=== PATIENT | male | born 1990 | race Two or more races ===

== ENCOUNTER 2017-11-18 14:15 | Emergency (ER) | payer OTHER ==
[~2017-11-18] VITALS: Ht 175.3 cm; Wt 74.8 kg
[2017-11-18] MEDS ORDERED: LORazepam Inj 2mg/ml 1ml IV ONE ×3 (14:30→17:45)
[2017-11-18] MEDS ORDERED: LORazepam Inj 2mg/ml 1ml ONE (14:39)
[2017-11-18 14:40] VITALS: BP 140/97
[2017-11-18] MEDS ORDERED: DiphenhydrAMINE 50mg/ml Inj IVP ONE (15:00)
--- NOTE | 2017-11-18 15:20 | Emergency Room Report ---
History of Present Illness General Chief Complaint: Behavioral Complaint Source: Patient Present Illness HPI Patient presents emergency department today with acute altered mental status. Patient apparently according to the police was knocking on doors and trying to get into different houses. Police arrived and put the patient under police custody. Patient however appeared to be confused and was brought here for further evaluation. No further history is available as patient is patient is not communicative. Patient appear to be talking to himself occasionally smiling. Symptoms noted to be moderate to severe. Unable to the obtained further history. All history was obtained from paramedics and police officers.No other modifying factors. No other associated signs and symptoms. No other complaints were noted. Allergies: Coded Allergies: UNABLE TO ASSESS (Unverified , 11/18/17) Patient History Past Medical History: unable to obtain Past Surgical History: unable to obtain Pertinent Family History: unable to obtain Social History Narrative uncertain if using drugs Reviewed Nursing Documentation: PMH: Agreed; PSxH: Agreed Nursing Documentation-PMH Past Medical History: No Stated History Review of Systems All Other Systems: limited - Poor mental status Physical Exam Vital Signs Date Time Temp Pulse Resp B/P (MAP) Pulse Ox O2 Delivery O2 Flow Rate FiO2 11/18/17 14:09 97.3 118 16 140/97 96 Room Air 97.3 Sp02 EP Interpretation: reviewed, normal General Appearance: alert, other - Appears confused Head: atraumatic Eyes: bilateral eye normal inspection ENT: dry mucus membranes Neck: supple Respiratory: lungs clear, no respiratory distress Cardiovascular #1: no edema, tachycardia Gastrointestinal: non tender, soft Genitourinary: no CVA tenderness Musculoskeletal: normal inspection Neurologic: alert, responsive, other - Appears confused but grossly nonfocal Psychiatric: other - Confused, poor judgment, poor insight Skin: normal inspection, normal color, no rash Medical Decision Making Diagnostic Impression: Primary Impression: Drug abuse Additional Impressions: Altered mental status Medical clearance for incarceration ER Course Patient presents emergency department today status post police arrest and require medical clearance. Patient apparently was confused required extensive workup including CT of the brain as well as MRI and then subsequently an RV and laboratory workup. Laboratory workup was positive for cannabis and amphetamines. MRI MRV CT were all negative. Therefore patient was medically clear for incarceration. He is advised to stop abusing drugs. Patient is discharged in police custody. Labs Test 11/18/17 15:00 11/18/17 15:20 White Blood Count 11.9 K/UL (4.8-10.8) Red Blood Count 6.11 M/UL (4.70-6.10) Hemoglobin 19.5 G/DL (14.2-18.0) Hematocrit 53.9 % (42.0-52.0) Mean Corpuscular Volume 88 FL (80-99) Mean Corpuscular Hemoglobin 32.0 PG (27.0-31.0) Mean Corpuscular Hemoglobin Concent 36.2 G/DL (32.0-36.0) Red Cell Distribution Width 10.3 % (11.6-14.8) Platelet Count 369 K/UL (150-450) Mean Platelet Volume 7.0 FL (6.5-10.1) Neutrophils (%) (Auto) 69.7 % (45.0-75.0) Lymphocytes (%) (Auto) 18.8 % (20.0-45.0) Monocytes (%) (Auto) 9.7 % (1.0-10.0) Eosinophils (%) (Auto) 0.3 % (0.0-3.0) Basophils (%) (Auto) 1.6 % (0.0-2.0) Urine Color [place] Urine Appearance Cloudy Urine pH 5 (4.5-8.0) Urine Specific [place] 1.030 (1.005-1.035) Urine Protein 2+ (NEGATIVE) Urine Glucose (UA) Negative (NEGATIVE) Urine Ketones 1+ (NEGATIVE) Urine Blood 1+ (NEGATIVE) Urine Nitrite Negative (NEGATIVE) Urine Bilirubin 1+ (NEGATIVE) Urine Ictotest Negative (NEGATIVE) Urine Urobilinogen 1 MG/DL (0.0-1.0) Urine Leukocyte Esterase 1+ (NEGATIVE) Urine RBC 2-4 /HPF (0 - 0) Urine WBC 5-10 /HPF (0 - 0) Urine Squamous Epithelial Cells Occasional /LPF Urine Amorphous Sediment Many /LPF (NONE) Urine Bacteria Moderate /HPF (NONE) Sodium Level 136 MMOL/L (136-145) Potassium Level 3.6 MMOL/L (3.5-5.1) Chloride Level 97 MMOL/L (98-107) Carbon Dioxide Level 20 MMOL/L (21-32) Anion Gap 19 mmol/L (5-15) Blood Urea Nitrogen 25 mg/dL (7-18) Creatinine 2.0 MG/DL (0.55-1.30) Estimat Glomerular Filtration Rate 40.0 mL/min (>60) Glucose Level 120 MG/DL (74-106) Calcium Level 10.6 MG/DL (8.5-10.1) Total Bilirubin 1.0 MG/DL (0.2-1.0) Aspartate Amino Transf (AST/SGOT) 23 U/L (15-37) Alanine Aminotransferase (ALT/SGPT) 21 U/L (12-78) Alkaline Phosphatase 122 U/L (46-116) Troponin I 0.000 ng/mL (0.000-0.056) Total Protein 9.2 G/DL (6.4-8.2) Albumin 5.2 G/DL (3.4-5.0) Globulin 4.0 g/dL Albumin/Globulin Ratio 1.3 (1.0-2.7) Thyroid Stimulating Hormone (TSH) 1.998 uiU/mL (0.358-3.740) Salicylates Level 2.7 ug/mL (2.8-20) Urine Opiates Screen Negative (NEGATIVE) Acetaminophen Level < 2 MCG/ML (10-30) Urine Barbiturates Screen Negative (NEGATIVE) Phencyclidine (PCP) Screen Negative (NEGATIVE) Urine Amphetamines Screen Positive (NEGATIVE) Urine Benzodiazepines Screen Negative (NEGATIVE) Urine Cocaine Screen Negative (NEGATIVE) Urine Marijuana (THC) Screen Positive (NEGATIVE) Serum Alcohol < 3 mg/dL Total Creatine Kinase 644 U/L (26-308) EKG Diagnostic Results Rate: normal Rhythm: NSR ST Segments: no acute changes Rhythm Strip Diag. Results EP Interpretation: yes Rate: 113 Rhythm: NSR, no PVC's, no ectopy CT/MRI/US Diagnostic Results CT/MRI/US Diagnostic Results #1: Imaging Test Ordered: MRI brain: Possible slow blood flow in the internal jugular and transverse CT/MRI/US Diagnostic Results #2: Imaging Test Ordered: MRV brain: No evidence of clot. Sinuses patent. Last Vital Signs Date Time Temp Pulse Resp B/P (MAP) Pulse Ox O2 Delivery O2 Flow Rate FiO2 11/18/17 14:09 97.3 118 16 140/97 96 Room Air 97.3 Status: improved Disposition: HOME, SELF-CARE Condition: Stable Nicholas Estes MD Nov 18, 2017 15:20
[2017-11-18 15:29] LABS: APPEARANCE,URINE CLOUDY; BILIRUBIN, URINE 1+ (NEGATIVE); GLUCOSE, URINE (UA) NEGATIVE (NEGATIVE); KETONES,URINE 1+ (NEGATIVE); LEUKOCYTE ESTERASE ,URINE 1+ (NEGATIVE); NITRITE,URINE NEGATIVE (NEGATIVE); PH,URINE 5 (4.5-8.0); PROTEIN,URINE 2+ (NEGATIVE); UROBILINOGEN,URINE 1 MG/DL (0.0-1.0)
[2017-11-18 15:33] LABS: COLOR,URINE AMBER
[2017-11-18 15:35] LABS: BASOPHILS % (AUTO) 1.6 % (0.0-2.0); EOSINOPHILS % (AUTO) 0.3 % (0.0-3.0); HEMATOCRIT 53.9 % (42.0-52.0); LYMPHOCYTES % (AUTO) 18.8 % (20.0-45.0); MEAN CORPUSCULAR VOLUME 88 FL (80-99); MONOCYTES % (AUTO) 9.7 % (1.0-10.0); NEUTROPHILS % (AUTO) 69.7 % (45.0-75.0); PLATELET COUNT 369 K/UL (150-450); RED BLOOD COUNT 6.11 M/UL (4.70-6.10); RED CELL DISTRIBUTION WIDTH 10.3 % (11.6-14.8); WHITE BLOOD COUNT 11.9 K/UL (4.8-10.8)
[2017-11-18 15:37] LABS: ANION GAP 19 mmol/L (5-15); BLOOD UREA NITROGEN 25 mg/dL (7-18); CALCIUM 10.6 MG/DL (8.5-10.1); CARBON DIOXIDE 20 MMOL/L (21-32); CHLORIDE 97 MMOL/L (98-107); POTASSIUM 3.6 MMOL/L (3.5-5.1); SODIUM 136 MMOL/L (136-145)
[2017-11-18 15:40] LABS: HEMOGLOBIN 19.5 G/DL (14.2-18.0)
[2017-11-18 15:51] LABS: ALANINE AMINOTRANSFERASE 21 U/L (12-78); ALBUMIN 5.2 G/DL (3.4-5.0); ALBUMIN/GLOBULIN RATIO 1.3 (1.0-2.7); ALKALINE PHOSPHATASE 122 U/L (46-116); ASPARTATE AMINO TRANSFERASE 23 U/L (15-37)
[2017-11-18 16:16] LABS: CREATINE KINASE 644 U/L (26-308)
[2017-11-18] MEDS ORDERED: cefTRIAXone 1 GM in NS 55 ML IVPB ONE (16:30)
[2017-11-18 16:40] VITALS: BP 126/77
--- NOTE | 2017-11-18 17:26 | Diagnostic Imaging Report ---
Indication: Cough Technique: One view of the chest Comparison: none Findings: Lungs and pleural spaces are clear. Heart size is normal Impression: No acute process
--- NOTE | 2017-11-18 17:37 | Diagnostic Imaging Report ---
Indication: Altered mental status Technique: sagittal T1 fast spin echo, axial T2 FLAIR, axial T2 FS PROPELLER, axial diffusion weighted images. ADC map was generated. Patient was sedated for the exam, but woke up before all sequences could be obtained. Patient became uncooperative, and axial T1 and GRE sequences could not be obtained. Comparison: none Findings: Exam is limited due to lack of available sequences. No abnormal areas of restricted diffusion to suggest acute infarction. No acute hemorrhage or edema seen on the T1 FLAIR images. No mass effect nor midline shift. Normal size ventricles and extra axial CSF spaces. Visualized orbits and sinuses are unremarkable. The arterial flow voids are preserved. However, signal is seen within the left transverse sinus, sigmoid sinus, and proximal internal jugular vein on multiple sequences. In addition, signal is seen within the venous structures in the left parotid gland on the T2-weighted images. Impression: Limited exam, as described Negative for acute infarct or edema. No definite evidence of hemorrhage on the T2 FLAIR images, but evaluation for such is somewhat limited in the absence of GRE images Signal within the left transverse sinus, sigmoid sinus, and proximal internal jugular vein on multiple sequences. Suspect that this is an artifact of sluggish flow, but thrombosis is not excludable. Consider MR venogram for better characterization Findings discussed by phone with Dr. Estes in the emergency room at the time of interpretation
[2017-11-18 19:18] VITALS: BP 132/79
[2017-11-18] MEDS ORDERED: CIPRO500 MG PO (20:01)
[2017-11-18 20:51] VITALS: BP 128/88
--- NOTE | 2017-11-19 08:57 | Diagnostic Imaging Report ---
Indications: Head pain, questionable dural sinus abnormality on recent MRI Technique: 3D [id number] images obtained through the [facility] [place]. MIP reconstructions were generated in multiple rotational projections Comparison: none Findings: The left transverse and sigmoid sinus, upstream internal jugular vein are patent, without evidence of intraluminal thrombus or other abnormality. The sagittal sinuses and deep veins are also patent Impression: Negative. Finding on previous MRI presumably artifactual This agrees with the preliminary interpretation provided overnight by Dr. Bonner
--- NOTE | 2017-11-19 15:11 | Diagnostic Imaging Report ---
Indication: Reason For Exam: AMS Technique: Continuous helical CT scanning of the head was performed without intravenous contrast material. Axial and coronal 5 mm sections were generated. Radiation dose was minimized using automated exposure control Dose: Total Dose Length Product - DLP 387.[address] Dose Index - CTDIvol(s) 70.38,70.38 mGy. Comparison: Brain MRI from 2 hours earlier Findings: The ventricular system is normal in size and configuration. There is no shift of midline structures. No abnormal extra-axial fluid collections are noted. There is no evidence of intracerebral bleeding. No other abnormal high or low density areas are noted within the brain. Normal mi-white differentiation. Tiny osteoma noted within a right ethmoid sinus. 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 Bonner The CT scanner at [facility] is accredited by the [employer] and the scans are performed using protocols designed to limit radiation exposure to as low as reasonably achievable to attain images of sufficient resolution adequate for diagnostic evaluation.
== END 2017-11-18 20:52 | disposition home or self-care (01) ==
LOC: EDBD 14:15 → EMR 18:10
DX: Z02.89 Encounter for other administrative examinations (principal); R41.82 Altered mental status, unspecified; F19.10 Other psychoactive substance abuse, uncomplicated
CPT/HCPCS: 36415; 70450; 70544; 70551; 71045; 80053; 80307; 81003; 82550; 84443; 84484; 85025; 87086; 93005; 96361; 96365; 96375; 96376; 99284; G0480; J0696; J1200; 80329